=== PATIENT | female | born 2000 | race Caucasian/White ===

== ENCOUNTER 2021-12-26 19:07 | Inpatient (IN) | payer MEDICAID ==
[~2021-12-26] VITALS: Ht 165.1 cm; Wt 63.5 kg
[2021-12-26] MEDS ORDERED: NALOXONE HCL 0.4 MG/ML AMPUL ONE (19:26)
[2021-12-26] MEDS ORDERED: IV NORMAL SALINE 1000 ML BAG IV ONE (19:30)
[2021-12-26] MEDS ORDERED: CEFTRIAXONE 1 G in IV DEXTROSE 5% 50 ML IV ONE (19:30)
[2021-12-26] MEDS ORDERED: NALOXONE HCL 0.4 MG/ML AMPUL IV ONE (19:30)
[2021-12-26] MEDS ORDERED: ACETAMINOPHEN 650 MG SUPP.RECT RC ONE (19:45)
[2021-12-26] MEDS ORDERED: ACETAMINOPHEN 325 MG SUPP RC ONE (19:45)
[2021-12-26] MEDS ORDERED: ACETAMINOPHEN 325 MG SUPP ONE (19:46)
[2021-12-26] MEDS ORDERED: CEFTRIAXONE /D5W 50ML IVPB **ER PYXIS IV ONE (19:47)
[2021-12-26 20:02] LABS: MEAN CORPUSCULAR HEMOGLOBIN 30.5 uug (24.7-32.8); MEAN CORPUSCULAR VOLUME 89.7 fL (75.5-95.3); PLATELET COUNT (AUTO) 384 K/uL (179-408)
[2021-12-26 20:04] LABS: CARBON DIOXIDE 27 mmol/L (21-32); CHLORIDE 101 mmol/L (98-107); CREATININE 1.1 mg/dL (0.6-1.3); GLUCOSE 115 mg/dL (74-106); POTASSIUM 3.7 mmol/L (3.5-5.1); UREA NITROGEN, BLOOD 8 mg/dL (7-18)
[2021-12-26 20:10] LABS: ACETAMINOPHEN < 2.0 ug/mL (10-30)
--- NOTE | 2021-12-26 20:10 | NUR ---
PT IS IN ROOM #2A. DR SQUIRES EVALUATED THE PT.
[2021-12-26 20:17] LABS: ALANINE AMINOTRANSFERASE 22 U/L (14-59); ALKALINE PHOSPHATASE 68 U/L (50-136); ASPARTATE AMINOTRANSFERASE 16 U/L (15-37); BILIRUBIN,DIRECT 0.1 mg/dL (0.0-0.2); BILIRUBIN,TOTAL 0.4 mg/dL (0.2-1.0); TOTAL PROTEIN, SERUM 8.7 g/dL (6.4-8.2)
[2021-12-26 20:33] LABS: ETHANOL < 3 MG/DL (0-0)
[2021-12-26] MEDS ORDERED: AZITHROMYCIN 500MG/ D5W 250ML IVPB **ER PYXIS ONLY IV ONE (20:36)
--- NOTE | 2021-12-26 20:40 | NUR ---
received a phone call from Octavio Ortiz from [facility] he says he is a nurse at the facility. I updated him on the status of the pt and informed him she will require admission.
[2021-12-26] MEDS ORDERED: IV NS 1000 ML 1,000 ML IV ONE (20:45)
[2021-12-26] MEDS ORDERED: AZITHROMYCIN IV 500 MG in IV DEXTROSE 5% 250 ML IV ONE (20:45)
[2021-12-26] MEDS ORDERED: IV NORMAL SALINE 500 ML IV ONE (21:00)
--- NOTE | 2021-12-26 21:05 | NUR ---
pt taken to cat scan.
[2021-12-26 21:08] LABS: CREATINE KINASE, TOTAL 26 U/L (26-192)
[2021-12-26 21:18] LABS: *BILIRUBIN,URIN NEGATIVE (NEGATIVE); *BLOOD, URINE NEGATIVE (NEGATIVE); *CLARITY,URINE CLEAR (CLEAR); *COLOR,URINE YELLOW (YELLOW); *KETONES,URINE NEGATIVE (NEGATIVE); *UROBILINOGEN,URINE 0.2 E.U./dl (NORMAL); LEUKOCYTE ESTERASE ,URINE NEGATIVE (NEGATIVE); NITRITE, URINE NEGATIVE (NEGATIVE); UGLUCOSE NEGATIVE (NEGATIVE)
--- NOTE | 2021-12-26 21:22 | NUR ---
pt returned from cat scan.
[2021-12-26 21:33] LABS: *AMPHETAMINE, URINE NEGATIVE (NEGATIVE); *CANNABINOID, URINE NEGATIVE (NEGATIVE); *COCCAINE, URINE NEGATIVE (NEGATIVE); *OPIATE, URINE NEGATIVE (NEGATIVE); *PHENCYCLIDINE SCREEN,URINE NEGATIVE (NEGATIVE)
[2021-12-26] MEDS ORDERED: ONDANSETRON 4 MG/2 ML VIAL IV PRN (23:30)
[2021-12-26] MEDS: AZITHROMYCIN IV 500 MG in IV DEXTROSE 5% 250 ML IV SCH (23:30)
[2021-12-26] MEDS: CEFTRIAXONE 1 G in IV DEXTROSE 5% 50 ML IV SCH (23:30)
[2021-12-26] MEDS ORDERED: MAGNESIUM HYDROXIDE 30 ML LIQUID UDC PO PRN (23:30)
--- NOTE | 2021-12-27 00:32 | NUR ---
there was an additional order for 1gm rocephin it was already given at 1952
--- NOTE | 2021-12-27 00:36 | NUR ---
zithromax was previously given at 0, it was ordered to be given at 2330
--- NOTE | 2021-12-27 00:51 | NUR ---
was informed by nurse upstairs that there is no place to put the pt and no nurse the pt will remain in the er.
--- NOTE | 2021-12-27 01:38 | NUR ---
pt with eyes closed, when called pt opens eyes and responds when asked simple questions such as her name.
[2021-12-27] MEDS ORDERED: ENOXAPARIN SODIUM 40 MG/0.4 ML DISP.SYRIN SQ ONE (01:54)
[2021-12-27] MEDS: ENOXAPARIN SODIUM 40 MG/0.4 ML DISP.SYRIN SQ SCH ×2 (01:55→20:48)
--- NOTE | 2021-12-27 04:37 | NUR ---
pt with eyes closed, respirations even unlabored.
[2021-12-27 07:36] LABS: HEMATOCRIT 35.3 % (31.2-41.9); MEAN CORPUSCULAR HEMOGLOBIN 30.6 uug (24.7-32.8); MEAN CORPUSCULAR VOLUME 90.2 fL (75.5-95.3); PLATELET COUNT (AUTO) 307 K/uL (179-408)
[2021-12-27 07:37] LABS: CREATININE 0.8 mg/dL (0.6-1.3); MAGNESIUM 1.8 mg/dL (1.8-2.4); PHOSPHOROUS 3.3 mg/dL (2.5-4.9)
--- NOTE | 2021-12-27 10:02 | NUR ---
REPORT WAS GIVEN TO STABLE [facility]. PT WAS TRANSFERED TO ROOM #312.
--- NOTE | 2021-12-27 10:04 | NUR ---
RECEIVED PATIENT FOR ADMISSION 21 YEARS OLD FEMALE FROM ED BY [facility] TO ROOM 312 WITH DX OF PNEUMONIA AND SEPSIS.PLACED INTO BED FIXED AND MADE COMFORTABLE.PATIENT IS ALERT RESPONDS WHEN SPOKEN TO BUT SHE IS SOMEWHAT LETHARGIC RESPONDS WHEN SPOKEN TO BUT SOME ANSWERS STATES DOES NOT REMEMBER DOES NOT KNOW HOW SHE GOT HERE.ORIENTED TO ROOM AND FACILITY PROTOCOL ON O2 AT 2L/M BY NASAL CANULA WITH NO SOB AT THIS TIME HL LEFT AC IS INTACT WITH NO S/S OF INFILTERATION ON SITE OCCASSIONAL COUGH WITH DIMINISHED BREATH SOUNDS MADE COMFORTABLE WILL CONTINUE TO OBSERVE
[2021-12-27 11:30] VITALS: BP 114/68
[2021-12-27] MEDS: IV NS 1000 ML 1,000 ML IV PRN (11:54)
--- NOTE | 2021-12-27 12:05 | NUR ---
DR CEE HECTOR HERE TO SEE AND EXAMINE PATIENT AND STATED TO CHANGE THE IV RATE TO 50 AND NOTED.
--- NOTE | 2021-12-27 14:15 | NUR ---
PATIENT YELLING OUT HELP ME SO I WENT INTO THE ROOM AND SAW HER STANDING UP WITH HER IV TUBING PULLING STATED NEED TO USE THE REST ROOM SHE IS VERY UNSTEADY ON HER FEET ASSISTED TO THE BATHROOM AND SHE VOIDED ADEQUATE AMOUNT AND ASSISTED BACK INTO HER BED WITH BED ALARM IN USE.
--- NOTE | 2021-12-27 16:40 | NUR ---
PATIENT SEEN BY DR WATKINS WITH NEW ORDER FOR CT CHEST WITHOUT CONTRAST AND NOTED.
[2021-12-27 17:09] VITALS: BP 105/66
--- NOTE | 2021-12-27 18:00 | NUR ---
PATIENT IS RESTING IN BED NOTED EPISODES OF FEELING AGITATED STATED HER PHONE DID NOT WORK BUT WAS EASILY REDIRECTABLE WILL CONTINUE TO OBSERVE IVF REMAINS IN PROGRESS ORDERED.
[2021-12-27 20:15] VITALS: BP 110/47
[2021-12-27] MEDS: AZITHROMYCIN IV 500 MG in IV DEXTROSE 5% 250 ML IV SCH (20:43)
[2021-12-27] MEDS: CEFTRIAXONE 1 G in IV DEXTROSE 5% 50 ML IV SCH (20:43)
[2021-12-27] MEDS ORDERED: AZITHROMYCIN IV 500 MG in IV DEXTROSE 5% 250 ML IV SCH (21:00)
[2021-12-27] MEDS: ACETAMINOPHEN 325 MG TABLET PO PRN (22:47)
[2021-12-27] MEDS ORDERED: CEFTRIAXONE 1 G in IV DEXTROSE 5% 50 ML IV SCH (23:00)
[2021-12-28 00:06] VITALS: BP 115/52
[2021-12-28 04:15] VITALS: BP 125/49
[2021-12-28 06:37] LABS: HEMATOCRIT 30.8 % (31.2-41.9); MEAN CORPUSCULAR HEMOGLOBIN 30.7 uug (24.7-32.8); MEAN CORPUSCULAR VOLUME 89.1 fL (75.5-95.3); PLATELET COUNT (AUTO) 291 K/uL (179-408)
[2021-12-28 06:52] LABS: CREATININE 0.9 mg/dL (0.6-1.3); MAGNESIUM 1.8 mg/dL (1.8-2.4); POTASSIUM 3.9 mmol/L (3.5-5.1)
--- NOTE | 2021-12-28 08:00 | NUR ---
Received patient in bed lethargic but awakens when spoken to. Oriented to name and place but unable to state her situation. Denies sob or pain. Iv fluids infusing as ordered, no infiltration noted on site. Sr on telemonitor. COmfortable on room air satting 95%. Kept comfortable. Safety maintained. Call light in reach.
[2021-12-28 11:30] VITALS: BP 116/62
--- NOTE | 2021-12-28 14:51 | NUR ---
Answered bed alarm and found patient walking to the rest room, a little unsteady on her feet. Assisted the patient, voiding without difficulty and assisted back to her bed. Reconnected telemonitor as patient removed it when she was in the restroom.
[2021-12-28 16:38] VITALS: BP 111/67
--- NOTE | 2021-12-28 18:35 | NUR ---
Patient is agitated yelling wants to go outside and smoke, explained she's pui until we get covid results but patient still agitated and disconnecting her ivf. informed private chef talya with new order noted.
[2021-12-28] MEDS: CHLORDIAZEPOXIDE HCL 25 MG CAPSULE PO SCH (18:39)
--- NOTE | 2021-12-28 18:53 | NUR ---
patient rios dout her iv line, refused reinsertion, wants to leave the hospital back to the rehab facility. Patient called Mani from drug rehab and made aware of patient's wish he said he will talk to his director and asked to be called back.
--- NOTE | 2021-12-28 19:14 | NUR ---
Called back Mani at drug and rehab facility and he said they are not able to accept the patient unless she's medically cleared by MD with paperwork. He asked to talk to the patient and was transferred. Endorsed to next shift accordingly.
--- NOTE | 2021-12-28 20:20 | NUR ---
PATIENT REFUSED TO BE ATTACHED TO TELE MONITOR, REFUSED VITAL SIGNS TO BE TAKEN AND REFUSED IV INSERTION. MD NOTIFIED THAT PATIENT IS REFUSING ALL NURSING CARE.
--- NOTE | 2021-12-28 20:22 | NUR ---
PATIENT IS AGITATED AND SCREAMING, WENT OUT OF THE ROOM AND YELLED AT THE NURSE, STATING SHE'S BEEN WANTING TO SMOKE. SHE REPORTS SHE WANTS TO LEAVE AMA, CALLED DRUG REHAB FACILITY, HOWEVER, FACILITY WONT ACCEPT HER UNTIL SHE GET MEDICALLY CLEARED. NOTIFIED, ORDERED 2MG IV ATIVAN, PATIENT DOESN'T HAVE IV ACCESS AND REFUSES AND NURSING INTERVENTION OR MEDICATION AT THIS TIME.
[2021-12-28] MEDS: ENOXAPARIN SODIUM 40 MG/0.4 ML DISP.SYRIN SQ SCH (20:25)
[2021-12-28] MEDS: IV NS 1000 ML 1,000 ML IV PRN (20:25)
[2021-12-28] MEDS: AZITHROMYCIN IV 500 MG in IV DEXTROSE 5% 250 ML IV SCH (20:25)
[2021-12-28] MEDS: CEFTRIAXONE 1 G in IV DEXTROSE 5% 50 ML IV SCH (21:11)
[2021-12-28] MEDS: ACETAMINOPHEN 325 MG TABLET PO PRN (23:44)
[2021-12-29] VITALS: BP 116/73
[2021-12-29] MEDS: AZITHROMYCIN IV 500 MG in IV DEXTROSE 5% 250 ML IV SCH ×2 (00:52→20:53)
--- NOTE | 2021-12-29 00:57 | NUR ---
PATIENT FINALLY AGREED TO NURSING CARE INTERVENTIONS. VITAL SIGNS TAKEN. IV ACCESS INSERTED AT R HAND GAUGE 22. IVF AND ANTIBIOTICS STARTED. PATIENT STILL OFF OF TELE. WILL CONTINUE TO MONITOR.
[2021-12-29] MEDS: CEFTRIAXONE 1 G in IV DEXTROSE 5% 50 ML IV SCH (02:02)
[2021-12-29 04:00] VITALS: BP 102/53
[2021-12-29] MEDS: CHLORDIAZEPOXIDE HCL 25 MG CAPSULE PO SCH ×3 (05:13→21:12)
[2021-12-29] MEDS: IV NS 1000 ML 1,000 ML IV PRN (05:13)
--- NOTE | 2021-12-29 05:40 | NUR ---
PATIENT CALM AT THIS TIME. IVF RUNNING WELL, PATIENT TOLERATED ANTIBIOTICS. STILL REFUSED TO BE ATTACHED TO TELEMONITOR. SAFETY PRECAUTIONS MAINTAINED. CALL LIGHT WITHIN REACH.
[2021-12-29 06:11] LABS: HEMATOCRIT 33.1 % (31.2-41.9); MEAN CORPUSCULAR HEMOGLOBIN 30.4 uug (24.7-32.8); MEAN CORPUSCULAR VOLUME 88.6 fL (75.5-95.3); PLATELET COUNT (AUTO) 334 K/uL (179-408)
[2021-12-29 06:41] LABS: CREATININE 0.9 mg/dL (0.6-1.3); MAGNESIUM 1.9 mg/dL (1.8-2.4); PHOSPHOROUS 4.4 mg/dL (2.5-4.9); POTASSIUM 4.3 mmol/L (3.5-5.1)
--- NOTE | 2021-12-29 07:45 | NUR ---
Sleeping, appears comfortable, calm. IVF infusing. Tele monitor off.
--- NOTE | 2021-12-29 11:00 | NUR ---
Sleeping most of the time. Calm and compliant with care
[2021-12-29 11:11] VITALS: BP 111/56
[2021-12-29] MEDS: NICOTINE 21 MG/24HR PATCH TD SCH (12:00)
[2021-12-29] MEDS: ENSURE ENLIVE (VAN) 240 ML LIQUID PO SCH (12:30)
--- NOTE | 2021-12-29 14:00 | NUR ---
Awake, eating lunch. Calm and compliant with care
[2021-12-29 15:00] VITALS: BP 107/66
--- NOTE | 2021-12-29 15:20 | NUR ---
Social work consult was requested for a patient on [facility] for substance abuse resources. Patient is 21-year-old female admitted to the hospital for sepsis. Patient is alert and oriented X3. Patient could not state why she was in the hospital. Patient appears lethargic. Patient presents with anxious mood and congruent affect. Patient states her primary sewing machines salesperson is her mother, Praveena Trimble ([phone]), who lives in [place], and they have a good relationship. Patient states her father, Roe, lives in [place] and they have a good relationship. Patient states that she is currently living at [place] [address] ([phone]). Patient states that she is currently unemployed. Patient states she has a history of substance abuse. The toxicology screening reports positive for benzodiazepines. Patient states she drank alcohol before she was admitted to the hospital. 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 SW offered the patient resources and the patient refused. Patient states that she is going to go back to the [place] [address] ([phone]) for treatment. SW placed the resources in the patients chart. Patient appears motivated for treatment. Patient denies a history of psychiatric diagnosis. Patient denies suicidal or homicidal ideation. Patient states that the discharge plan is for Mani ([phone]) from the [facility] to take her back to the treatment center at [facility] [address] [address]. This SW spoke with Venkat, case picker who followed up with the discharge plan.
--- NOTE | 2021-12-29 18:38 | NUR ---
Afebrile, not in distress.
--- NOTE | 2021-12-29 19:30 | NUR ---
Received pt awake, alert and orientedx3. Pt in no acute distress. Iv intact. Safety and comfort provided. Will continue to monitor.
[2021-12-29 20:23] VITALS: BP 113/69
[2021-12-29] MEDS: ENOXAPARIN SODIUM 40 MG/0.4 ML DISP.SYRIN SQ SCH (20:54)
--- NOTE | 2021-12-29 22:00 | NUR ---
Pt IV pulled out so pt IV fluid was held. Pt stable and in no acute distress. Will continue to monitor.
[2021-12-30] MEDS: IV NS 1000 ML 1,000 ML IV PRN ×2 (03:00→03:11)
[2021-12-30 04:30] VITALS: BP 106/69
--- NOTE | 2021-12-30 06:29 | NUR ---
Pt in no acute distress. Prescribed medication given and pt tolerated it well. Iv intact. Safety and comfort provided. All needs are met. Vital sign stable. Pt can make her needs known. Will endorse to incoming nurse for continuity of care.
[2021-12-30] MEDS: CHLORDIAZEPOXIDE HCL 25 MG CAPSULE PO SCH ×3 (06:42→21:48)
[2021-12-30 06:44] LABS: HEMATOCRIT 35.8 % (31.2-41.9); MEAN CORPUSCULAR HEMOGLOBIN 30.5 uug (24.7-32.8); MEAN CORPUSCULAR VOLUME 87.6 fL (75.5-95.3); PLATELET COUNT (AUTO) 402 K/uL (179-408)
[2021-12-30 07:02] LABS: MAGNESIUM 1.9 mg/dL (1.8-2.4); PHOSPHOROUS 5.1 mg/dL (2.5-4.9); POTASSIUM 4.5 mmol/L (3.5-5.1)
[2021-12-30] MEDS: ENSURE ENLIVE (VAN) 240 ML LIQUID PO SCH (09:30)
[2021-12-30] MEDS: NICOTINE 21 MG/24HR PATCH TD SCH (09:30)
[2021-12-30 12:00] VITALS: BP 112/70
[2021-12-30 16:00] VITALS: BP 109/60
--- NOTE | 2021-12-30 18:34 | NUR ---
PT SLEPT MOST OF THE TIME;PT A LITTLE DEPRESSES BECAUSE OF HOSPITALIZATION; ENCOURAGE PT TO DO SOME THERAPEUTIC ACTIVITIES; PT ATE 80% OF HER MEALS; NO ACUTE DISTRESS NOTED; NO SOB; NO PAIN COMPLAIN.
--- NOTE | 2021-12-30 19:30 | NUR ---
Received pt in no acute distress. Pt on isolation.Iv intact. Safety and comfort provided. Will continue to monitor.
[2021-12-30 20:00] VITALS: BP 108/64
[2021-12-30] MEDS: ENOXAPARIN SODIUM 40 MG/0.4 ML DISP.SYRIN SQ SCH (20:52)
[2021-12-30] MEDS: ACETAMINOPHEN 325 MG TABLET PO PRN (20:52)
[2021-12-30] MEDS ORDERED: AZITHROMYCIN 250 MG TABLET PO SCH (21:00)
[2021-12-30] MEDS: CEFTRIAXONE 1 G in IV DEXTROSE 5% 50 ML IV SCH (21:47)
[2021-12-31] MEDS: IV NS 1000 ML 1,000 ML IV PRN (04:00)
[2021-12-31] MEDS: CHLORDIAZEPOXIDE HCL 25 MG CAPSULE PO SCH (05:54)
--- NOTE | 2021-12-31 06:41 | NUR ---
Pt slept intermittently. Pt in no acute distress. Iv intact. Prescribed medication given and pt tolerated it well. Safety and comfort provided.All needs are met. Vital signs within normal limit. Pt on room air. Will endorse to incoming nurse.
[2021-12-31 06:49] LABS: HEMATOCRIT 35.6 % (31.2-41.9); MEAN CORPUSCULAR HEMOGLOBIN 30.7 uug (24.7-32.8); MEAN CORPUSCULAR VOLUME 88.2 fL (75.5-95.3); PLATELET COUNT (AUTO) 411 K/uL (179-408)
[2021-12-31 07:16] LABS: BILIRUBIN,TOTAL 0.1 mg/dL (0.2-1.0); CREATININE 0.9 mg/dL (0.6-1.3); MAGNESIUM 1.9 mg/dL (1.8-2.4); POTASSIUM 4.1 mmol/L (3.5-5.1); TOTAL PROTEIN, SERUM 8.2 g/dL (6.4-8.2)
--- NOTE | 2021-12-31 08:00 | NUR ---
Received patient in bed, slipping. No distress or pain noted
[2021-12-31] MEDS: NICOTINE 21 MG/24HR PATCH TD SCH ×2 (09:00→09:15)
[2021-12-31] MEDS: ENSURE ENLIVE (VAN) 240 ML LIQUID PO SCH (09:15)
[2021-12-31 11:00] VITALS: BP 100/62
--- NOTE | 2021-12-31 13:45 | NUR ---
Patient tested negative for Covid 19 and is ready fo DC to her rehab [facility] in [place]. Patient is stable, and being picked up by [employer].
== END 2021-12-31 13:40 | disposition home or self-care (01) | DRG 720 ==
LOC: ER 19:09 → TRANSITION 12-27 01:04 → TELE3 12-27 08:37 → MEDSURG3 12-28 10:34 → TELE3 12-28 10:38 → MEDSURG3 12-29 10:10
PROVIDERS: ADMIT Nurse Practitioner Acute Care; ATTEND Nurse Practitioner Family
DX: A41.89 Other specified sepsis (principal); J69.0 Pneumonitis due to inhalation of food and vomit; U07.1 COVID-19; E44.0 Moderate protein-calorie malnutrition; E87.2 Acidosis; E88.09 Other disorders of plasma-protein metabolism, not elsewhere classified; R65.20 Severe sepsis without septic shock; Z90.5 Acquired absence of kidney; F19.10 Other psychoactive substance abuse, uncomplicated; F10.10 Alcohol abuse, uncomplicated; Z87.440 Personal history of urinary (tract) infections; Z68.23 Body mass index [BMI] 23.0-23.9, adult
CPT/HCPCS: 36415; 70450; 71045; 71250; 83605; 83615; 83735; 84100; 84484; 85025; 86140; 87040; 93005; A4663; G0378; G0480; J0456; J0696; J1650; J2310; J7040; J7050; Q0144; U0003